=== PATIENT | female | born 1985 | race Caucasian/White ===

== ENCOUNTER 2020-04-29 19:49 | Emergency (ER) | payer MEDICAID, OTHER ==
[~2020-04-29] VITALS: Ht 167.6 cm; Wt 87.2 kg
[2020-04-29 20:00] VITALS: BP 151/91
[2020-04-29] MEDS: IV NORMAL SALINE 1,000ML 1,000 ML IV SCH (20:57)
[2020-04-29] MEDS: ONDANSETRON PF 4 MG/2 ML VIAL. IVP ONE (21:00)
[2020-04-29] MEDS ORDERED: CONTRAST GIVEN. MC PRN (21:15)
[2020-04-29 21:30] LABS: BASO # 0.1 x10^3/uL (0.0-0.2); BASO % 1 % (0-3); EOS # 0.2 x10^3/uL (0.0-0.7); EOS % 3 % (0-3); HEMATOCRIT 33.8 % (36.0-47.0); HEMOGLOBIN 11.4 g/dL (12.0-15.5); LYMPH # 3.1 x10^3/uL (1.0-4.8); LYMPH % 41 % (24-48); MEAN CORPUSCULAR HEMOGLOBIN 29 pg (25-35); MEAN CORPUSCULAR HGB CONC 34 g/dL (31-37); MEAN CORPUSCULAR VOLUME 86 fL (79-100); MONO # 0.5 x10^3/uL (0.0-1.1); MONO % 7 % (0-9); NEUT # 3.7 x10^3uL (1.8-7.7); NEUT % 48 % (31-73); PLATELET COUNT 269 x10^3/uL (140-400); RED BLOOD COUNT 3.93 x10^6/uL (3.50-5.40); RED CELL DISTRIBUTION WIDTH 14.7 % (11.5-14.5); WHITE BLOOD COUNT 7.6 x10^3/uL (4.0-11.0)
--- NOTE | 2020-04-29 21:33 | PHYS DOC ---
Past History Past Medical History: Migraines, Other Past Surgical History: Appendectomy, Cholecystectomy, Other Smoking: Non-smoker Alcohol Use: Rarely Drug Use: None Adult General Chief Complaint Chief Complaint: ABDOMINAL PAIN HPI HPI Patient is a 35-year-old female who presents for epigastric/left-sided abdominal pain and URI-like symptoms. Patient reports history of lactose intolerance and ingested milk approximately 10 days ago. Patient reported classical symptoms of lactose intolerance for 24 to 48 hours after ingestion. Nonetheless, patient presented to local [place] ER for evaluation 1 week ago given persistent abdominal cramping and pain. Patient reports having extensive lab work performed, no imaging was performed, and subsequently being discharged home with treatment for UTI. She is on an unknown antibiotic at this time, reports said antibiotic once a day without compliance issues and has 2 days left. She reports having greater than 3 episodes of diarrhea for 48 hours after starting antibiotics but this has since resolved. Nonetheless, ongoing abdominal pain/cramping and URI-like symptoms concerning patient prompting her to visit our ER for formal evaluation Review of Systems Review of Systems Fourteen body systems of review of systems have been reviewed. See HPI for pertinent positives and negative responses, other long all other systems are negative, non-pertinent or non-contributory Current Medications Current Medications Current Medications Medications (Trade) Dose Ordered Sig/Carolee Start Time Stop Time Status Last Admin Dose Admin Info (Do NOT chart on this entry -- for MONITORING) 1 each PRN DAILY PRN 04/29/20 21:15 05/01/20 21:14 Iohexol (Omnipaque 300 Mg/ml) 75 ml 1X ONCE 04/29/20 21:30 04/29/20 21:31 DC Ondansetron HCl (Zofran) 4 mg 1X ONCE 04/29/20 21:00 04/29/20 21:10 DC 04/29/20 21:00 4 MG Sodium Chloride 1,000 ml @ 1,000 mls/hr Q1H 04/29/20 20:57 04/29/20 21:56 04/29/20 20:57 1,000 MLS/HR Allergies Allergies Allergies Coded Allergies Type Severity Reaction Last Updated Verified Latex, Natural Rubber Allergy Intermediate 03/23/14 Yes Sulfa (Sulfonamide Antibiotics) Allergy Unknown 03/23/14 Yes Physical Exam Physical Exam Constitutional: Well developed, well nourished, no acute distress, non-toxic appearance. HENT: Normocephalic, atraumatic, bilateral external ears normal, middle ears unremarkable with well-appearing TMs bilaterally, oropharynx moist with postnasal drip present, no oral exudates, external nose normal, mildly engorged bilateral nasal turbinates. Eyes: PERRLA, EOMI, conjunctiva normal, no discharge. Neck: Normal range of motion, no tenderness, supple, no stridor. Cardiovascular: Heart rate regular, sinus rhythm, no murmurs rubs or gallops Lungs & Thorax: Bilateral breath sounds clear to auscultation Abdomen: Bowel sounds normal, soft, generalized tenderness, no rebound, mild voluntary guarding, no masses, no pulsatile masses. Nonsurgical abdomen, no peritoneal signs Skin: Warm, dry, no erythema, no rash. Back: No tenderness, no CVA tenderness. Extremities: No tenderness, no cyanosis, no clubbing, ROM intact, no edema. Neurologic: Alert and oriented X 3, grossly normal motor & sensory function, no focal deficits noted. Psychologic: Tearful affect, judgement normal, mood normal. Current Patient Data Vital Signs Vital Signs Date Time Temp Pulse Resp B/P (MAP) Pulse Ox O2 Delivery O2 Flow Rate FiO2 04/29/20 20:00 98.2 78 16 151/91 (111) 98 Room Air EKG EKG EKG ordered and interpreted by myself at 2132 hrs. as sinus rhythm at 59 bpm, unremarkable intervals, no axis deviation, no ischemic findings, no STEMI Radiology/Procedures Radiology/Procedures PROCEDURE: CT ABD PELV W/ IV CONTRST ONLY Exam: CT of abdomen and pelvis with contrast INDICATION: Left lower quadrant pain TECHNIQUE: Sequential axial images through the abdomen and pelvis obtained following the administration of 75 mL of Omni 300 IV contrast. Sagittal and coronal reformatted images were reconstructed from the axial data and reviewed. Comparisons: 08/28/2014 FINDINGS: Heart size is normal. Visualized lung bases are clear. No pleural effusion. Mild diffuse hepatic steatosis. Spleen, pancreas and adrenals are unremarkable. Gallbladder surgically absent. No perinephric inflammation or hydronephrosis. There is a 3 mm nonobstructing right renal calculus noted. No ureteral calculi are identified. Bladder is decompressed not well evaluated. Uterus is not enlarged. IUD is noted within the uterus. There is a cystic lesion at the left adnexa measuring approximately 3.8 cm in diameter. Remainder of the large and small bowel are unremarkable. Appendix is not identified. No free intra-abdominal air or fluid. No obstruction. Abdominal aorta has a normal course and caliber. Abdominal vasculature is patent. No enlarged abdominal lymph nodes are identified. Abdominal aorta has a normal course and caliber. No suspicious osseous lesions or acute fractures. IMPRESSION: 1. A 3.8 cm cystic lesion at the left adnexa favored represent cyst in the left ovary. This is incompletely evaluated on CT. 2. A nonobstructing 2 mm calculus at the right kidney Exposure: One or more of the following in the visualized dose reduction techniques were utilized for this examination: 1. Automated exposure control 2. Adjustment of the MA and/or KV according to patient size 3. Use of iterative of reconstructive technique Electronically signed by: Chelsy Guaman MD (04/29/2020 10:57 PM) [id number] Course & Med Decision Making Course & Med Decision Making Patient seen on immediate ED arrival after ambulating to her ER room without difficulty Airway patent, breathing unlabored, vital signs unremarkable, IV access obtained Comprehensive history and physical exam obtained, subsequent laboratory and imaging studies ordered Patient given 1 L normal saline and 4 mg IV Zofran with improvement in symptomology Patient observed and reassessed numerous times by various healthcare providers during her stay with improvement in symptomology ED course reviewed. Went in depth regarding physical exam findings, laboratory and imaging results Discussed no emergent pathology requiring immediate surgical intervention or other diagnostic work-up at this time Symptomology likely due to COVID-19, educated extensively on self quarantining and self-care until test obtained today results in upcoming 48 to 72 hours Discussed no emergent causes of patient's abdominal pain, discussed this might be an acute presentation of more serious pathology. Advised outpatient follow- up for kidney stone and left ovarian cystic mass Also discussed findings of patient's normocytic anemia which will require outpatient PCP work-up Advised patient to continue previously prescribed antibiotics to completion for previously diagnosed UTI Ultimately, patient discharged home in stable condition with a new prescription for Zofran for as needed nausea use Strict return precautions discussed at length with good understanding by patient, all questions and concerns addressed prior to ER departure Dragon Disclaimer Dragon Disclaimer This electronic medical record was generated, in whole or in part, using a voice recognition dictation system. Departure Departure: Impression: Primary Impression: Abdominal pain Additional Impressions: Person under investigation for COVID-19 Left ovarian cyst Recent urinary tract infection Normocytic anemia Disposition: 01 HOME/RESIDENCE PRIOR TO ADM Condition: STABLE Referrals: KEVIN BHANDARI (PCP) Patient Instructions: Abdominal Pain (Nonspecific), Ovarian Cyst Additional Instructions: As discussed prior to ER departure, please follow-up with your PCP in upcoming 1 to 7 days Please discuss need for [employer]ORCY[employer] REPA[employer]ER referral for evaluation and potential ultrasonography to better characterize your left ovarian cyst Recommend PCP evaluate the cause of your normocytic anemia Ensure you take your previously prescribed antibiotics for your previously diag nosed UTI to completion Also as mentioned, your symptoms are concerning for potential COVID-19 infection. You were tested today and results are pending. If you do not hear from our ED with a positive or negative result in the next 48 hours, please feel free to give us a call Please see below for more detailed instructions regarding being a person under investigation of COVID-19 Short You were evaluated in the Emergency Department today for a cough. Your evaluation suggests a viral infection such as Coronavirus. It is important that you continue to self isolate and practice good hygiene at home. Please follow up with your primary care physician as discussed. Return to the Emergency Department if you experience worsening cough, fever, tyesha rtness of breath, recurrent vomiting, lethargy, or any other concerning symptoms. Thank you for choosing us for your care. Usted fue evaluado en el Departamento de Emergencia hoy por tos. Garcia evaluacin sugiere jovan infeccin viral rafael el coronavirus. Es importante que contine aislndose y practicando jovan buena higiene en el hogar. Patt un seguimiento con garcia mdico de atencin primaria rafael se discuti. Regrese al Departamento de Emergencias si experimenta un empeoramiento de la tos, fiebre, falta de aliento, vmitos recurrentes, letargo o cualquier otro sntoma relacionado. Jose por elegir nosotros para garcia atencin. Home Care Instructions for Patients with Mild Respiratory Infection Most people with respiratory infections like colds, the flu, and Coronavirus Disease (COVID-19) will have mild illness and can get better with appropriate home care and without the need to see a provider. People who are elderly, , or have a weak immune system, or other medical problem are at higher risk of more serious illness or complications. It is recommended that they carefully monitor their symptoms closely and seek medical care early if their symptoms get worse. TREATMENT AND MEDICAL CARE Treatment There is no specific treatment for most viruses including those that that cause the common cold and those that cause COVID-19. Sometimes there is treatment for the viruses that cause influenza if given early. Antibiotics treat infections caused by bacteria, but they do not work against viruses.Most people recover on their own from these viruses, including COVID-19. Here are steps that you can take to help you get better: Rest Drink plenty of fluids Take gnqr-jta-humxtvh cold and flu medications to reduce fever and pain. Follow the instructions on the package, unless your doctor gave you instructions. Note that these medicines do not ``cure the illness and therefore do not stop you from spreading germs. Children should not be given medication that contains aspirin (acetylsalicylic acid) because it can cause a rare but serious illness called Tyler syndrome. Medicines without aspirin include acetaminophen (Tylenol) and ibuprofen (Advil, Motrin). Children younger than age 2 should not be given any huez-zjf-tlrhgge cold medications without first speaking with a doctor.Seeking Medical Care You should seek medical care if you are not getting better within a week, or if your symptoms get worse. If you are elderly, , have a weak immune system, or other medical problems, call your doctor right away. It is best to call ahead of time to discuss your symptoms, if possible. This may allow you to receive the advice you need by phone. By avoiding a visit to a healthcare facility, you protect yourself from getting a new infection and protect others from catching an infection from you. If you do visit a healthcare facility, put on a mask to protect other patients and staff. It is recommended that you seek medical care for serious symptoms, such as: People with potentially life-threatening symptoms should call 911. If possible, put on a facemask before emergency medical services arrive.PROTECTING OTHERS Follow the steps below to help prevent the disease from spreading to people in your home and community.Stay home when you are sick Stay home - do not go to work, school, or public areas. Stay home for at least 24 hours after your symptoms have gone away without the use of fever-reducing medicines. If you must leave home while you are sick, try to avoid using public transportation, ride-shares, and taxis. Wear a mask if possible. Separate yourself from other people and animals in your home Stay in a specific room and away from other people in your home as much as possible. Use a separate bathroom, if available. Try to stay at least 6 feet from others. Do not handle pets or other animals while you are sick. Cover your coughs and sneezes Cover your mouth and nose with a tissue when you cough or sneeze. Throw used tissues in a lined trash can; immediately wash your hands. Avoid sharing personal household items Do not share dishes, drinking glasses, cups, eating utensils, towels, or bedding with other people or pets in your home. Wash them thoroughly with soap and water after use. Clean your hands often Wash your hands often with soap and water for at least 20 seconds. If soap and water are not available, clean your hands with an alcohol-based hand transformation consultant that contains at least 60% alcohol, covering all surfaces of your hands and rubbing them together until they feel dry. Use soap and water if your hands are visibly dirty. Clean all ``high-touch surfaces every day High touch surfaces include counters, tabletops, doorknobs, bathroom fixtures, toilets, phones, keyboards, tablets, and bedside tables. Also, clean any surfaces that may have body fluids on them. Use a household cleaning spray or wipe, according to the product label instructions. COVID-19 (Novel Coronavirus) FAQs for Inquiring Patients What do you do if you are worried that you have been exposed to COVID-19 but are without any symptoms? If you develop symptoms that may indicate an infection, contact your physician. These include fever, cough, and shortness of breath. Testing is not available for asymptomatic individuals, regardless of travel history. To reduce the chance of getting sick use general infection prevention measures such as hand washing, covering your mouth and nose when you cough or sneeze and discarding any tissues carefully, and staying home when you are sick.Can exceptions be made for patients who are really worried and want to be tested? Presently testing is only available through the [facility] Department of Public Health and Centers for Disease Control and Prevention. Only patients who meet the updated COVID-19 PUI definition may be tested. We do not control or set the PUI definition or evaluation criteria. We are unable to provide testing to patients who do not meet the strict criteria. Should patients cancel or postpone an upcoming trip? The decision about travel is personal and should be made in the context of a persons underlying health conditions, reason for travel and necessity of travel. Travel insurance generally does not cover cancellations due to concerns of infectious disease outbreaks. The Center for Disease Control has a section on travel notices. Situations are changing frequently and you should monitor the site for updates. Should situations change rapidly in a foreign country while they are traveling, you could be subject to quarantine or restrictions upon return to the [place]. It is best to have a plan on how to return urgently if needed during a trip abroad. Because of how air circulates and is filtered on airplanes, most viruses do not spread easily on airplanes. CDC does not recommend use of facemasks during air travel.What other general precautions are advised? Patients should be instructed to: Avoid close contact with people who are sick. Avoid touching your eyes, nose and mouth. Stay home from work or school when they are sick. If you have a fever, you should remain home until 24 hours after fever resolves. Clean and disinfect frequently touched objects and surfaces using a regular household cleaning spray or wipe. Sneeze/cough into their elbow, not your hand. Practice frequent hand hygiene with soap and water (at least 20 seconds) or alcohol-based hand rub. Consider avoiding crowded places or mass gatherings, especially if you are immunocompromised or have chronic lung disease. There is no evidence to support transmission of COVID-19 from goods imported from [place]. Are there any special precautions that are recommended if I am ? There is not yet any information available about the susceptibility of women to COVID-19. As a general rule, women may be more susceptible to viral respiratory infections and at risk for more severe illness. The CDC guidance for COVID-19 and has answers to questions about transmission during delivery, as well as other situations. Should food, water, or medications be stockpiled? Should people telecommute? The CDC has excellent information on this. Please visit the CDCs guidance for getting your household ready for COVID-19. What should I do if I start feeling sick at work? And what should the workplace do for anyone exposed? Anyone who is sick with a fever and cough should stay home from work until at least 24 hours after resolution of fever, regardless of concerns for COVID-19. It is still influenza (flu) season and influenza remains far more common. You have been evaluated in the Emergency Department today for abdominal pain. Your evaluation was not suggestive of any emergent condition requiring medical intervention at this time. However, some abdominal problems make take more time to appear. Therefore, it is important for you to watch for any new symptoms or worsening of your current condition. Return to the Emergency Department if you experience worsening pain, persistent fevers greater than 100.4, recurrent vomiting, blood in vomit, blood in stool, dark tarry stool, chest pain, difficulty breathing, or any other concerning symptoms. Scripts Ondansetron Hcl (ZOFRAN) 4 Mg Tablet 1 TAB PO PRN Q6-8HRS for NAUSEA, #15 TAB Prov: GARDENIA HADLEY DO 04/29/20 Justification of Admission: Justification of Admission: Justification of Admission Dx: N/A Problem Qualifiers GARDENIA HADLEY DO Apr 29, 2020 21:33
[2020-04-29 21:37] LABS: CALCIUM 8.6 mg/dL (8.5-10.1); CREATININE 0.9 mg/dL (0.6-1.0); GFR 72.1; POTASSIUM 4.2 mmol/L (3.5-5.1)
[2020-04-29 21:43] LABS: ALBUMIN 3.7 g/dL (3.4-5.0); ALBUMIN/GLOBULIN RATIO 0.9 (1.0-1.7); TOTAL BILIRUBIN 0.6 mg/dL (0.2-1.0); TOTAL PROTEIN 7.7 g/dL (6.4-8.2)
[2020-04-29] MEDS: IOHEXOL 300 MG/ML 75 ML VIAL. IV ONE (22:13)
--- NOTE | 2020-04-29 23:00 | RAD ---
Exam: CT of abdomen and pelvis with contrast INDICATION: Left lower quadrant pain TECHNIQUE: Sequential axial images through the abdomen and pelvis obtained following the administration of 75 mL of Omni 300 IV contrast. Sagittal and coronal reformatted images were reconstructed from the axial data and reviewed. Comparisons: 08/28/2014 FINDINGS: Heart size is normal. Visualized lung bases are clear. No pleural effusion. Mild diffuse hepatic steatosis. Spleen, pancreas and adrenals are unremarkable. Gallbladder surgically absent. No perinephric inflammation or hydronephrosis. There is a 3 mm nonobstructing right renal calculus noted. No ureteral calculi are identified. Bladder is decompressed not well evaluated. Uterus is not enlarged. IUD is noted within the uterus. There is a cystic lesion at the left adnexa measuring approximately 3.8 cm in diameter. Remainder of the large and small bowel are unremarkable. Appendix is not identified. No free intra-abdominal air or fluid. No obstruction. Abdominal aorta has a normal course and caliber. Abdominal vasculature is patent. No enlarged abdominal lymph nodes are identified. Abdominal aorta has a normal course and caliber. No suspicious osseous lesions or acute fractures. IMPRESSION: 1. A 3.8 cm cystic lesion at the left adnexa favored represent cyst in the left ovary. This is incompletely evaluated on CT. 2. A nonobstructing 2 mm calculus at the right kidney Exposure: One or more of the following in the visualized dose reduction techniques were utilized for this examination: 1. Automated exposure control 2. Adjustment of the MA and/or KV according to patient size 3. Use of iterative of reconstructive technique Electronically signed by: Chelsy Guaman MD (04/29/2020 10:57 PM) [id number]
--- NOTE | 2020-04-29 23:07 | EKG ---
[address] [id number] Test Date: 2020-04-29 Test Time: 21:28:15 Pat Name: MITCHELL ANDREW Department: Room: Gender: F Crossband Layer: : 1985 Requested By: GARDENIA HADLEY Order Number: [id number] Reading MD: Measurements Intervals [place] Rate: 59 P: 48 IL: 138 QRS: 14 QRSD: 82 T: 10 QT: 400 QTc: 396 Interpretive Statements SINUS RHYTHM NORMAL ECG RI6.02 No previous ECG available for comparison
--- NOTE | 2020-04-29 23:29 | RAD ---
EXAM: AP View of the chest DATE: 04/29/2020 8:57 PM INDICATION: Reason: epigastric pain, N/V, CHILLS, FEVER, HEADACE, COVID SYMPTOMS / Spl. Instructions: / History: COMPARISON: No Prior FINDINGS: The heart is not enlarged. Mediastinal and hilar contours are normal. No focal parenchymal airspace opacity. No pleural effusion or pneumothorax. IMPRESSION: 1. No radiographic evidence for acute cardiopulmonary process. Electronically signed by: Bari Mills MD (04/29/2020 11:26 PM) GUSTAVO
[2020-04-29] MEDS ORDERED: ONDA4TAB7 PO (23:38)
== END 2020-04-29 23:49 | disposition home or self-care (01) ==
LOC: ER 19:49
DX: N39.0 Urinary tract infection, site not specified (principal); R10.84 Generalized abdominal pain; D64.9 Anemia, unspecified; G43.909 Migraine, unspecified, not intractable, without status migrainosus; Z20.828 Contact with and (suspected) exposure to other viral communicable diseases; Z90.49 Acquired absence of other specified parts of digestive tract; Z90.89 Acquired absence of other organs; Z88.2 Allergy status to sulfonamides; Z91.040 Latex allergy status
CPT/HCPCS: 36415; 71045; 74177; 80053; 81025; 83690; 84484; 85025; 93005; 96361; 96374; 99285; J2405; J7030; Q9967; U0003

== ENCOUNTER 2020-09-12 23:55 | Emergency (ER) | payer MEDICAID ==
[~2020-09-12 23:55] MED LIST: ONDA4TAB7 PO
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
[2020-09-13] MEDS ORDERED: PROCHLORPERAZINE 10 MG/2 ML VIAL. IV ONE (01:15)
[2020-09-13] MEDS ORDERED: diphenhydrAMINE 50 MG/ML VIAL IVP ONE (01:15)
[2020-09-13 01:53] LABS: CREATININE 0.9 mg/dL (0.6-1.0); GFR 72.1; POTASSIUM 3.7 mmol/L (3.5-5.1)
[2020-09-13 01:54] LABS: BASO # 0.1 x10^3/uL (0.0-0.2); BASO % 1 % (0-3); EOS # 0.3 x10^3/uL (0.0-0.7); EOS % 3 % (0-3); HEMATOCRIT 32.5 % (36.0-47.0); HEMOGLOBIN 10.6 g/dL (12.0-15.5); LYMPH # 3.2 x10^3/uL (1.0-4.8); LYMPH % 38 % (24-48); MEAN CORPUSCULAR HEMOGLOBIN 28 pg (25-35); MEAN CORPUSCULAR HGB CONC 33 g/dL (31-37); MEAN CORPUSCULAR VOLUME 86 fL (79-100); MONO # 0.5 x10^3/uL (0.0-1.1); MONO % 6 % (0-9); NEUT # 4.4 x10^3uL (1.8-7.7); NEUT % 52 % (31-73); PLATELET COUNT 315 x10^3/uL (140-400); RED BLOOD COUNT 3.77 x10^6/uL (3.50-5.40); RED CELL DISTRIBUTION WIDTH 14.2 % (11.5-14.5); WHITE BLOOD COUNT 8.5 x10^3/uL (4.0-11.0)
--- NOTE | 2020-09-13 01:56 | RAD ---
XR CHEST 1V 09/13/2020 1:25 AM INDICATION: Cough COMPARISON: 04/29/2020 TECHNIQUE: Portable frontal view of the chest is provided. FINDINGS: The cardiomediastinal silhouette is within normal limits. Lungs are clear. There are no significant pleural effusions. There is no pulmonary vascular congestion. No pneumothora x. No suspicious osseous abnormality. IMPRESSION: There is no acute cardiopulmonary process. Electronically signed by: Molly Morales MD (09/13/2020 1:54 AM) [facility]
--- NOTE | 2020-09-13 01:57 | RAD ---
RS Compliance Statement: One or more of the following individualized dose reduction techniques were utilized for this examinat ion: 1. Automated exposure control 2. Adjustment of the mA and/or kV according to patient size 3. Use of iterative reconstruction technique CT head without contrast 09/13/2020 1:25 AM INDICATION: Headache COMPARISON: None available TECHNIQUE: Multiple axial CT images of the head were obtained from skull base through the vertex with out intravenous contrast. FINDINGS: Head: Ventricles, sulci and basal cisterns are within normal limits. There is no hydrocephalus. Patel-white matter differentiation is normal. There is no acute intracranial hemorrhage. There is no mass, mass e ffect or midline shift. Posterior fossa is normal in appearance. Visualized portions of the orbits are normal. Paranasal sinuses are well aerated. Mastoid air cells a re well aerated. Scalp and calvaria are normal. IMPRESSION: No acute intracranial hemorrhage. Electronically signed by: Molly Morales MD (09/13/2020 1:54 AM) [facility]
[2020-09-13 02:01] LABS: BARBITURATES NEG (NEG); BENZODIAZEPINES NEG (NEG); CANNABINOIDS NEG (NEG); COCAINE NEG (NEG); METHADONE NEG (NEG); OPIATES NEG (NEG); PHENCYCLIDINE NEG (NEG)
[2020-09-13 02:04] LABS: BACTERIA,URINE MOD /HPF (0-FEW); BILIRUBIN,URINE NEG (NEG); CLARITY,URINE HAZY; COLOR,URINE YELLOW; GLUCOSE,URINE NEG (NEG); NITRITE,URINE NEG (NEG); RBC,URINE 0 /HPF (0-2); SQUAMOUS EPITHELIAL CELL,UR FEW /LPF; UROBILINOGEN,URINE 0.2 mg/dL (0.2 mg/dL)
[2020-09-13 02:05] LABS: C REACTIVE PROTEIN 10.1 mg/L (0-3.3); MAGNESIUM 2.1 mg/dL (1.8-2.4)
[2020-09-13 02:10] LABS: AMPHETAMINE/METHAMPHETAMINE NEG (NEG)
[2020-09-13] MEDS ORDERED: diphenhydrAMINE 50 MG/ML VIAL IV ONE (02:45)
[2020-09-13] MEDS ORDERED: CEPH-264 PO (02:56)
[2020-09-13] MEDS ORDERED: CEPHALEXIN 250 MG CAPSULE PO ONE (03:00)
--- NOTE | 2020-09-14 07:47 | EKG ---
[address] [address] Test Date: 2020-09-13 Test Time: 00:59:55 Pat Name: MITCHELL ANDREW Department: Room: Gender: F Assistant Track Coach: SHIRLEY : 1985 Requested By: SERENITY LAGUERRE Order Number: [id number] Reading MD: Measurements Intervals [place] Rate: 63 P: 50 MD: 144 QRS: 11 QRSD: 84 T: 26 QT: 410 QTc: 423 Interpretive Statements SINUS RHYTHM NORMAL ECG RI6.02 No previous ECG available for comparison
== END 2020-09-13 03:15 | disposition home or self-care (01) ==
LOC: ER 23:55
DX: G43.909 Migraine, unspecified, not intractable, without status migrainosus (principal); D64.9 Anemia, unspecified; N39.0 Urinary tract infection, site not specified; B34.9 Viral infection, unspecified; Z20.828 Contact with and (suspected) exposure to other viral communicable diseases; Z91.040 Latex allergy status; Z88.2 Allergy status to sulfonamides
CPT/HCPCS: 36415; 70450; 71045; 80048; 80307; 81001; 81025; 82550; 83735; 83880; 84484; 85025; 85610; 85730; 86140; 87086; 93005; 96374; 96375; 96376; 99285; C9803; J0780; J1200; U0003

== ENCOUNTER 2021-09-26 21:54 | Emergency (ER) | payer MEDICAID ==
[~2021-09-26] VITALS: Ht 162.6 cm; Wt 108.0 kg
[~2021-09-26 21:54] MED LIST changes: +CEPH-264 PO
[2021-09-26 21:58] VITALS: BP 176/107
[2021-09-26] MEDS ORDERED: ONDANSETRON PF 4 MG/2 ML VIAL. ONE (22:14)
[2021-09-26] MEDS ORDERED: KETOROLAC 15 MG/ML VIAL. ONE (22:14)
[2021-09-26] MEDS ORDERED: KETOROLAC 30 MG/ML VIAL. IVP ONE (22:15)
[2021-09-26] MEDS ORDERED: ONDANSETRON PF 4 MG/2 ML VIAL. IVP ONE (22:15)
[2021-09-26 22:29] LABS: BACTERIA,URINE FEW /HPF (0-FEW); BILIRUBIN,URINE NEG (NEG); CLARITY,URINE HAZY; COLOR,URINE YELLOW; GLUCOSE,URINE 100 mg/dL (NEG); NITRITE,URINE NEG (NEG); SQUAMOUS EPITHELIAL CELL,UR FEW /LPF; UROBILINOGEN,URINE 0.2 mg/dL (0.2 mg/dL)
[2021-09-26 22:30] LABS: RBC,URINE >40 /HPF (0-2)
[2021-09-26 22:31] LABS: U PREG PATIENT NEGATIVE (NEG)
--- NOTE | 2021-09-26 22:47 | RAD ---
Exam: CT of abdomen and pelvis without contrast INDICATION: Sudden onset right flank pain TECHNIQUE: Sequential axial images through the abdomen, obtained without IV contrast. Sagittal and co forest reformatted images were reconstructed from the axial data and reviewed. Exposure: One or more of the following in the visualized dose reduction techniques were utilized for this examination: 1. Automated exposure control 2. Adjustment of the MA and/or KV according to patient size 3. Use of iterative of reconstructive technique Comparisons: 04/29/2020 FINDINGS: Heart size is normal. No pericardial effusion. Visualized lung bases are clear. No. Diffuse hepatic steatosis. Spleen, pancreas and adrenals are unremarkable. Gallbladder surgically abs ent. There is mild right-sided hydronephrosis. There is a 4 mm calculus at the proximal right ureter. Bladder is decompressed not well evaluated. Uterus not enlarged. No abnormal adnexal mass. Moderate amount of stool is noted throughout the colon. Appendix is nonidentified. No free intra-abdo dayanna air or fluid. No obstruction. Abdominal aorta has normal course and caliber. No enlarged intra-abdominal lymph nodes are identified. No suspicious osseous lesions or acute fractures. IMPRESSION: 1. A 4 mm calculus at the proximal right ureter with mild right-sided hydronephrosis. 2. Diffuse hepatic steatosis. Electronically signed by: Chelsy Guaman MD (09/26/2021 10:45 PM) [facility]
--- NOTE | 2021-09-26 23:04 | PHYS DOC ---
Past History Past Medical History: Migraines, Other Past Surgical History: Appendectomy, Cholecystectomy, Other Smoking: Non-smoker Alcohol Use: Rarely Drug Use: None Adult General Chief Complaint Chief Complaint: BLOOD IN URINE HPI HPI Patient is a 36-year-old female who presents with right-sided flank pain, 6 out of 10, sharp in nature with radiation ending towards the groin. Has a history of renal stones. Denies any recent traumas, travels, illness, fevers, chest pain, shortness of breath, dysuria, hematuria or blood in the stool. Review of Systems Review of Systems C review of systems otherwise unremarkable except noted in HPI Current Medications Current Medications Current Medications Medications (Trade) Dose Ordered Sig/Carolee Start Time Stop Time Status Last Admin Dose Admin Ketorolac Tromethamine (Toradol 15mg Vial) 15 mg STK-MED ONCE 09/26/21 22:14 09/26/21 22:15 DC Ketorolac Tromethamine (Toradol 30mg Vial) 15 mg 1X ONCE 09/26/21 22:15 09/26/21 22:16 DC 09/26/21 22:16 15 MG Ondansetron HCl (Zofran) 4 mg STK-MED ONCE 09/26/21 22:14 09/26/21 22:15 DC Allergies Allergies Allergies Coded Allergies Type Severity Reaction Last Updated Verified Latex, Natural Rubber Allergy Intermediate 03/23/14 Yes Sulfa (Sulfonamide Antibiotics) Allergy Unknown 03/23/14 Yes adhesive tape Allergy Unknown 09/26/21 Yes Physical Exam Physical Exam Constitutional: Well developed, well nourished, no acute distress, non-toxic appearance. [] Eyes: , conjunctiva normal, no discharge. [] Cardiovascular:Heart rate regular rhythm, no murmur [] Lungs & Thorax: Bilateral breath sounds clear to auscultation [] Abdomen: Bowel sounds normal, soft, no tenderness, no masses, no pulsatile masses. [] Skin: Warm, dry, no erythema, no rash. [] Back: No tenderness, no CVA tenderness. [] Extremities: No tenderness, no cyanosis, no clubbing, ROM intact, no edema. [] Neurologic: Alert and oriented X 3, normal motor function, normal sensory function, no focal deficits noted. [] Psychologic: Affect normal, judgement normal, mood normal. [] Current Patient Data Vital Signs Vital Signs Date Time Temp Pulse Resp B/P (MAP) Pulse Ox O2 Delivery O2 Flow Rate FiO2 09/26/21 21:58 98.3 79 18 176/107 (130) 98 Room Air Lab Results Laboratory Tests Test 09/26/21 22:04 09/26/21 22:10 Urine Collection Type Unknown Urine Color Yellow Urine Clarity Hazy Urine pH 6.0 Urine Specific [place] >=1.030 Urine Protein 100 mg/dl (NEG-TRACE) Urine Glucose (UA) 100 mg/dL (NEG) Urine Ketones (Stick) Neg mg/dL (NEG) Urine Blood Large (NEG) Urine Nitrite Neg (NEG) Urine Bilirubin Neg (NEG) Urine Urobilinogen Dipstick 0.2 mg/dL (0.2 mg/dL) Urine Leukocyte Esterase Small (NEG) Urine RBC >40 /HPF (0-2) Urine WBC 1-4 /HPF (0-4) Urine Squamous Epithelial Cells Few /LPF Urine Bacteria Few /HPF (0-FEW) Urine Test Negative (NEG) POC Urine HCG, Qualitative hcg negative (Negative) EKG EKG [] Radiology/Procedures Radiology/Procedures [] Heart Score C/O Chest Pain: No Risk Factors: Risk Factors: DM, Current or recent (<one month) smoker, HTN, HLP, family history of CAD, obesity. Risk Scores: Risk Factors: DM, Current or recent (<one month) smoker, HTN, HLP, family history of CAD, obesity. Course & Med Decision Making Course & Med Decision Making Patient is a 36-year-old female who presents with right-sided flank pain and history of renal stones Vital signs notable for hypertension. Physical exam noted above. Given pain and nausea medicine Urinalysis not suggestive of urinary tract infection. CT with a small 4 mm calculus nonobstructing with mild right-sided hydronephrosis and hepatic steatosis Discussed all findings with patient. Discussed pain and nausea management at home. Advised to follow-up in the morning with primary care physician. Advised to strain urine. Gave return precautions to the ED. Patient grateful, verbalized understanding and agreed with plan of discharge. [] Dragon Disclaimer Dragon Disclaimer This electronic medical record was generated, in whole or in part, using a voice recognition dictation system. Departure Departure: Impression: Primary Impression: Ureterolithiasis Disposition: HOME / SELF CARE / HOMELESS Condition: GOOD Referrals: KEVIN BHANDARI (PCP) Patient Instructions: Diet for Kidney Stones, Kidney Stones Additional Instructions: Thank you for coming into the emergency department tonight and allowing us to take care of you. Please read the attached information carefully to go over things we discussed. Please take your prescription nausea medicine and pain medicine as prescribed. Please be sure to drink plenty of fluids and strain your urine. Please follow-up in the morning with your primary care physician update on ED visit and set up a follow-up for reevaluation. A small stone like that at its location can take up to 10 days to pass please also begin an ibuprofen regimen. Please come back with new or concerning symptoms as discussed. Please take your prescription pain and nausea medicine every 8 hours as needed. Please add ibuprofen every 6 hours at 600 mg. NATALYA WANG MD Sep 26, 2021 23:04
[2021-09-26] MEDS ORDERED: ONDANSETRON 4MG ODT 4TABLET STARTPACK. PO ONE (23:15)
[2021-09-26] MEDS ORDERED: ACETAMINOPHEN/CODEINE 300/30MG 4TABLET STARTPACK. PO ONE (23:15)
[2021-09-26] MEDS ORDERED: oxyCODONE/APAP 5/325 1 TAB TABLET PO ONE (23:15)
== END 2021-09-26 23:17 | disposition home or self-care (01) ==
LOC: ER 21:54
DX: N13.2 Hydronephrosis with renal and ureteral calculous obstruction (principal); G43.909 Migraine, unspecified, not intractable, without status migrainosus; Z90.89 Acquired absence of other organs; Z90.49 Acquired absence of other specified parts of digestive tract; Z91.040 Latex allergy status; Z88.2 Allergy status to sulfonamides; Z88.8 Allergy status to other drugs, medicaments and biological substances
CPT/HCPCS: 74176; 81001; 81025; 87086; 96374; 96375; 99284; J1885; J2405; Q0162

== ENCOUNTER → 2021-10-18 | Outpatient (CLI) | payer MEDICAID ==
[2021-09-26 21:58] VITALS: BP 176/107
--- NOTE | 2021-10-18 13:23 | RAD ---
Examination: Ultrasound abdomen limited HISTORY: History of elevated liver enzymes COMPARISON: None available FINDINGS: The liver length measures 18.9 cm. There is moderate increased echogenicity identified in the liver l ikely hepatic steatosis. Surgical changes of cholecystectomy identified. The common bile duct measure s 3.7 mm in transverse dimension. The right kidney measures 12.5 x 5.5 x 4.6 cm. Mild right-sided hyd ronephrosis identified. The visualized pancreas grossly appears unremarkable. IMPRESSION: 1. Mild right hydronephrosis. 2. Hepatic steatosis. Electronically signed by: Mihai Agosto MD (10/18/2021 1:21 PM) [id number]
== END ==
LOC: US 10:15
PROVIDERS: ATTEND Family Medicine
DX: K76.0 Fatty (change of) liver, not elsewhere classified (principal); N13.30 Unspecified hydronephrosis; R74.8 Abnormal levels of other serum enzymes
CPT/HCPCS: 76705

== ENCOUNTER → 2021-11-09 | Outpatient (CLI) | payer MEDICAID ==
--- NOTE | 2021-11-09 12:02 | RAD ---
Study: CT abdomen/pelvis without intravenous contrast Indication: Right flank pain. Comparison: 09/26/2021 Technique: Helical CT imaging performed of the abdomen and pelvis without the use of intravenous cont rast. Sagittal and coronal reformats were obtained. One or more of the following individualized dose reduction techniques were utilized for this examinat ion: 1. Automated exposure control 2. Adjustment of the mA and/or kV according to patient size 3. Use of iterative reconstruction technique. Findings: Inherently limited evaluation without intravenous contrast. No newly seen abnormality at the lower chest. Diffuse hepatic steatosis and mild hepatomegaly. Absent gallbladder. Nondilated biliary tree. Within normal limits pancreas and adrenal glands. Unchanged mild splenomegaly. There is now moderate right-s ided hydroureteronephrosis with the 5 mm stone seen at the ureteropelvic junction on the comparison n ow within the distal aspect of the ureter approximately 4 cm above the UVJ. Punctate nonobstructing i ntrarenal stone at the superior pole the left kidney. Normal bladder wall thickness. Intrauterine contraceptive device left ovarian 3 cm cyst measuring simple density. Within normal limi ts colon. Absent appendix. Nonobstructed small bowel. Unremarkable stomach. Nonaneurysmal abdominal aorta. Unchanged lymph nodes. No newly developed abnormality of the body wall soft tissues or bones. Impression: 1. Progressive now moderate hydroureteronephrosis on the right. A 5 mm stone previously seen at the right ureteropelvic junction has migrated to the distal aspect of the ureter approximately 4 cm above the ureterovesicular junction. 2. Punctate nonobstructing stone at the superior pole on the left. 3. Hepatic steatosis. Mild hepatosplenomegaly. Electronically signed by: JOHN ZAMUDIO MD (11/09/2021 12:00 PM) [facility]
== END ==
LOC: CT 10:21
PROVIDERS: ATTEND Specialist
DX: N20.1 Calculus of ureter (principal); K76.0 Fatty (change of) liver, not elsewhere classified; R16.2 Hepatomegaly with splenomegaly, not elsewhere classified; N20.0 Calculus of kidney; N83.292 Other ovarian cyst, left side
CPT/HCPCS: 74176

== ENCOUNTER → 2021-11-18 | Outpatient (CLI) | payer MEDICAID ==
[2021-11-18 10:33] LABS: BASO # 0.1 x10^3/uL (0.0-0.2); BASO % 1 % (0-3); EOS # 0.2 x10^3/uL (0.0-0.7); EOS % 4 % (0-3); HEMATOCRIT 36.3 % (36.0-47.0); HEMOGLOBIN 11.9 g/dL (12.0-15.5); LYMPH # 2.4 x10^3/uL (1.0-4.8); LYMPH % 39 % (24-48); MEAN CORPUSCULAR HEMOGLOBIN 28 pg (25-35); MEAN CORPUSCULAR HGB CONC 33 g/dL (31-37); MEAN CORPUSCULAR VOLUME 86 fL (79-100); MONO # 0.3 x10^3/uL (0.0-1.1); MONO % 4 % (0-9); NEUT # 3.3 x10^3uL (1.8-7.7); NEUT % 53 % (31-73); PLATELET COUNT 361 x10^3/uL (140-400); RED BLOOD COUNT 4.22 x10^6/uL (3.50-5.40); RED CELL DISTRIBUTION WIDTH 14.9 % (11.5-14.5); WHITE BLOOD COUNT 6.2 x10^3/uL (4.0-11.0)
[2021-11-18 11:20] LABS: CLARITY,URINE TURBID; COLOR,URINE YELLOW; GLUCOSE,URINE NEG (NEG); NITRITE,URINE NEG (NEG); UROBILINOGEN,URINE 0.2 mg/dL (0.2 mg/dL)
[2021-11-18 11:21] LABS: BACTERIA,URINE MANY /HPF (0-FEW); SQUAMOUS EPITHELIAL CELL,UR MANY /LPF
[2021-11-18 11:26] LABS: ALBUMIN 3.7 g/dL (3.4-5.0); ALBUMIN/GLOBULIN RATIO 0.8 (1.0-1.7); CALCIUM 8.9 mg/dL (8.5-10.1); CREATININE 0.9 mg/dL (0.6-1.0); GFR 71.7; TOTAL BILIRUBIN 0.9 mg/dL (0.2-1.0); TOTAL PROTEIN 8.5 g/dL (6.4-8.2)
== END ==
LOC: LAB 09:30
PROVIDERS: ATTEND Family Medicine
DX: I16.0 Hypertensive urgency (principal)
CPT/HCPCS: 36415; 80053; 81001; 84443; 84484; 85025; 87086

== ENCOUNTER → 2022-01-05 | Outpatient (CLI) | payer MEDICAID ==
[2022-01-06 13:11] LABS: CALCIUM PTH 9.4 mg/dL (8.7-10.2); CREATININE PTH 0.77 mg/dL (0.57-1.00); PTH INTACT 40 pg/mL (15-65)
== END ==
LOC: LAB 12:03
PROVIDERS: ATTEND Internal Medicine Cardiovascular Disease
DX: I10 Essential (primary) hypertension (principal)
CPT/HCPCS: 82533; 83970